=== PATIENT | female | born 1990 | race African-American/Black ===

== ENCOUNTER 2019-03-10 11:27 | Emergency (ER) | payer SELFPAY ==
[2019-03-10 11:33] VITALS: BP 120/84; PULSE 89; TEMP 98.6; BMI 32.1
[2019-03-10] MEDS ORDERED: ONDANSETRON 4 MG/2 ML VIAL IVPUSH ONE (12:05)
[2019-03-10] MEDS ORDERED: KETOROLAC TROMETHAMINE 30 MG/1 ML VIAL IVPUSH STA (12:05)
[2019-03-10] MEDS ORDERED: SODIUM CHLORIDE 1,000 ML IV STA ×2 (12:05→13:34)
--- NOTE | 2019-03-10 12:26 | PDOC ---
History of Present Illness - General Chief Complaint: Pain, Acute Stated Complaint: BACK PAIN Time Seen by Provider: 03/10/19 11:50 History Source: Patient Exam Limitations: No Limitations - History of Present Illness Travel History: No Initial Comments: 03/10/19 12:08 28-year-old female presents to ED with complaints of hematuria since Sunday now with bilateral back pain rating to her lower abdomen. Patient states pain is worsened to the left side. Patient denies history of renal colic ovarian cyst, irregular menses, or UTI recently. Patient denies abdominal distention or change in bowel pattern. Patient also denies fever, chills but states mild nausea this a.m. Quality: reports: mild Abdominal Pain Onset Location: reports: flank Pain Radiation: reports: back Activities at Onset: reports: none Aggravating Factors: improves with: None Alleviating Factors: improves with: None Past History - Travel Traveled outside of the country in the last 30 days: No Close contact w/someone who was outside of country & ill: No - Past Medical History Home Medications: Ambulatory Orders Oxycodone HCl/Acetaminophen [Percocet 5-325 mg Tablet] 1 - 2 tab PO TID PRN #12 tab MDD 4 03/10/19 Sulfamethoxazole/Trimethoprim [Bactrim Ds -] 1 tab PO BID #20 tablet 03/10/19 - Psycho Social/Smoking Cessation Hx Smoking History: Current every day smoker Number of Cigarettes Smoked Daily: 0.5 Information on smoking cessation initiated: No Hx Alcohol Use: Yes Drug/Substance Use Hx: No Patient Lives Alone: No Lives with/in: spouse/SO Review of Systems - Review of Systems Able to Perform ROS?: Yes Constitutional: No: Symptoms Reported HEENTM: No: Symptoms Reported Respiratory: No: Symptoms reported Cardiac (ROS): No: Symptoms Reported ABD/GI: Yes: Nausea, Abdominal cramping : Yes: Flank Pain, Hematuria Integumentary: No: Symptoms Reported Neurological: No: Symptoms reported Endocrine: No: Symptoms Reported *Physical Exam - Vital Signs Last Vital Signs Temp Pulse Resp BP Pulse Ox 98.6 F 89 19 120/84 99 03/10/19 11:29 03/10/19 11:29 03/10/19 11:29 03/10/19 11:29 03/10/19 11:29 - Physical Exam General Appearance: Yes: Nourished, Appropriately Dressed. No: Apparent Distress HEENT: negative: Pale Conjunctivae Neck: positive: Supple Respiratory/Chest: positive: Lungs Clear, Normal Breath Sounds. negative: Respiratory Distress, Accessory Muscle Use Cardiovascular: positive: Regular Rhythm, Regular Rate. negative: Murmur Gastrointestinal/Abdominal: positive: Soft, Tenderness (ted flank tenderness and rt lower and suprparubic tenderness) Musculoskeletal: positive: CVA Tenderness (L) Integumentary: positive: Normal Color, Warm, Moist Neurologic: positive: Motor Strength 5/5 (ambulatory) ED Treatment Course - LABORATORY CBC & Chemistry Diagram: 03/10/19 12:20 03/10/19 12:20 Medical Decision Making - Medical Decision Making 03/10/19 12:36 Chief complaint: Hematuria and flank pain since Sunday now with nausea and abdominal pain no medical history no family history except for ovarian cyst. Exam: Left CVA and right/left flank pain with tenderness to the right suprapubic and right lower quadrant Plan: Labs, urine, IV Toradol, Zofran and fluids 03/10/19 13:04 Laboratory Tests 03/10/19 03/10/19 03/10/19 12:20 12:20 12:20 WBC 6.7 Hgb 13.3 Hct 40.4 Absolute Neuts (auto) 3.5 Sodium 140 Potassium 4.1 Chloride 105 Carbon Dioxide 27 Anion Gap 8 BUN 12.6 Creatinine 0.9 Est GFR (CKD-EPI)NonAf 86.41 Random Glucose 85 Calcium 9.3 Total Bilirubin 0.4 AST 9 L ALT 27 Alkaline Phosphatase 101 Total Protein 7.6 Albumin 3.6 Lipase 42 L Urine Protein 1+ H Urine Ketones Negative Urine Blood 1+ H Ur Leukocyte Esterase 3+ H Urine WBC (Auto) 337 Urine RBC (Auto) 11 Urine Bacteria (Auto) 277.9 Patient received ceftriaxone secondary to urinary findings and physical exam. After receiving the medication patient did complain of mild dizziness. Patient ordered for second liter of normal saline along with kidney ultrasound 03/10/19 15:17 Ultrasound shows no signs of hydronephrosis lesions, or other acute pathology. patient will be discharged home with Percocet and Bactrim for urinary tract infection/pyelonephritis. Discharge - Discharge Information Problems reviewed: Yes Clinical Impression/Diagnosis: Pyelonephritis Condition: Improved Disposition: HOME - Additional Discharge Information Prescriptions: Oxycodone HCl/Acetaminophen [Percocet 5-325 mg Tablet] 1 - 2 tab PO TID PRN #12 tab MDD 4 PRN Reason: Pain Sulfamethoxazole/Trimethoprim [Bactrim Ds -] 1 tab PO BID #20 tablet - Follow up/Referral - Patient Discharge Instructions Patient Printed Discharge Instructions: DI for Kidney Infection Additional Instructions: Please drink at least 2 L of water on a daily basis. Clean from front to back. Please start your Bactrim tonight. And take Percocet as needed for pain but do not operate any heavy machinery including of vehicle. - Post Discharge Activity Work/Back to School Note: Back to Work
[2019-03-10 12:29] LABS: BASO % 0.9 % (0-2.0); EOS % 1.4 % (0-4.5); HEMATOCRIT 40.4 % (32.4-45.2); HEMOGLOBIN 13.3 GM/dL (10.7-15.3); LYMPH % 38.5 % (8-40); MCH 27.5 pg (25.7-33.7); MCHC 33.1 g/dl (32.0-36.0); MEAN CELL VOLUME 83.2 fl (80-96); MEAN PLT VOLUME 8.9 fl (7.5-11.1); MONO % 7.2 % (3.8-10.2); PLATELET COUNT 353 K/MM3 (134-434); RBC 4.85 M/mm3 (3.60-5.2); RDW 13.1 % (11.6-15.6); WHITE BLOOD COUNT 6.7 K/mm3 (4.0-10.0)
[2019-03-10 12:30] LABS: EPI CELLS 3.4 /HPF (0-5/HPF); HYALINE CASTS 3 /lpf (0-8); URINE APPEARANCE CLOUDY; URINE BACTERIA 277.9 /hpf (NEGATIVE); URINE BILIRUBIN NEGATIVE (NEGATIVE); URINE COLOR YELLOW; URINE GLUCOSE (UA) NEGATIVE (NEGATIVE); URINE KETONE NEGATIVE (NEGATIVE); URINE LEUK ESTERASE 3+ (NEGATIVE); URINE NITRITE NEGATIVE (NEGATIVE); URINE PROTEIN 1+ (NEGATIVE); URINE RBC 11 /hpf (0-4); URINE WBC 337 /hpf (0-5)
[2019-03-10] MEDS ORDERED: CEFTRIAXONE 1 GM in DEXTROSE 5%-WATER - 50 ML IVPB ONE (12:38)
[2019-03-10] MEDS ORDERED: CEFTRIAXONE 1 GM/50 ML BAG ONE (12:48)
[2019-03-10 13:01] LABS: ALBUMIN 3.6 g/dl (3.4-5.0); BILIRUBIN,TOTAL 0.4 mg/dL (0.2-1); BLOOD UREA NITROGEN 12.6 mg/dL (7-18); CALCIUM 9.3 mg/dL (8.5-10.1); CREATININE 0.9 mg/dL (0.55-1.3); POTASSIUM 4.1 mmol/L (3.5-5.1); TOT PROT 7.6 g/dl (6.4-8.2)
== END 2019-03-10 15:24 | disposition home or self-care (01) ==
LOC: JER 11:27
PROC: 3E0337Z Introduction of Electrolytic and Water Balance Substance into Peripheral Vein, Percutaneous Approach (ICD-10-PCS; principal; 2019-03-10)
PROC: 3E03329 Introduction of Other Anti-infective into Peripheral Vein, Percutaneous Approach (ICD-10-PCS; 2019-03-10)
PROC: 3E0333Z Introduction of Anti-inflammatory into Peripheral Vein, Percutaneous Approach (ICD-10-PCS; 2019-03-10)
PROC: 3E033GC Introduction of Other Therapeutic Substance into Peripheral Vein, Percutaneous Approach (ICD-10-PCS; 2019-03-10)
DX: N12 Tubulo-interstitial nephritis, not specified as acute or chronic (principal); F17.210 Nicotine dependence, cigarettes, uncomplicated
CPT/HCPCS: 36415; 76775-TC; 80053; 81003; 83690; 84703; 85025; 87077; 87086; 99282-25; J7030

== ENCOUNTER 2019-05-22 10:05 | Emergency (ER) | payer BC ==
[2019-05-22 10:16] VITALS: BMI 28.8
--- NOTE | 2019-05-22 10:23 | PDOC ---
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 She reports that her symptoms of somewhat improved but have been persistent. She denies shortness of breath, nausea, diaphoresis, lightheadedness. She smokes a cigar once a week, does not use OCP, denies recent travel or surgery. No prior dvt or pe. ROS GENERAL/CONSTITUTIONAL: No fever or chills. No weakness. HEAD, EYES, EARS, NOSE AND THROAT: No change in vision. No ear pain or discharge. No sore throat. CARDIOVASCULAR: No chest pain or shortness of breath RESPIRATORY: No cough, wheezing, or hemoptysis. GASTROINTESTINAL: No nausea, vomiting, diarrhea or constipation. GENITOURINARY: No dysuria, frequency, or change in urination. MUSCULOSKELETAL: No joint or muscle swelling or pain. No neck or back pain. SKIN: No rash NEUROLOGIC: No headache, vertigo, loss of consciousness, or change in strength/ sensation. ENDOCRINE: No increased thirst. No abnormal weight change HEMATOLOGIC/LYMPHATIC: No anemia, easy bleeding, or history of blood clots. ALLERGIC/IMMUNOLOGIC: No hives or skin allergy. PE GENERAL: Awake, alert, and fully oriented, in no acute distress HEAD: No signs of trauma, normocephalic, atraumatic EYES: PERRLA, EOMI, sclera anicteric, conjunctiva clear ENT: oropharynx clear without exudates. Moist mucosa NECK: Normal ROM, supple LUNGS: No distress, speaks full sentences, clear to auscultation bilaterally HEART: Regular rate and rhythm, normal S1 and S2, no murmurs, rubs or gallops, peripheral pulses normal and equal bilaterally. ABDOMEN: Soft, nontender, normoactive bowel sounds. No guarding, no rebound. No masses EXTREMITIES : Normal inspection, Normal range of motion, no edema. No clubbing or cyanosis. NEUROLOGICAL: Cranial nerves II through XII grossly intact. Normal speech, normal gait, no focal sensorimotor deficits SKIN: Warm, Dry, normal turgor, no rashes or lesions noted MDM DDX including but not limited to: r/o acs vs pe msk vs pleuritis ED Course: labs wnl dimer and trop negative cxr with no acute pathology pending formal echo Shena Sims, PGY2 Emergency Medicine 05/22/19 14:03 05/22/19 14:04 Past History - Past Medical History Allergies/Adverse Reactions: Allergies Allergy/AdvReac Type Severity Reaction Status Date / Time No Known Allergies Allergy Verified 05/22/19 10:13 Home Medications: Ambulatory Orders NK [No Known Home Medication] 05/22/19 COPD: No - Immunization History Immunization Up to Date: Yes - Psycho Social/Smoking Cessation Hx Smoking History: Never smoked Number of Cigarettes Smoked Daily: 0.5 Information on smoking cessation initiated: No Hx Alcohol Use: No Drug/Substance Use Hx: No *Physical Exam - Vital Signs Last Vital Signs Temp Pulse Resp BP Pulse Ox 97.9 F 68 17 123/68 100 05/22/19 10:13 05/22/19 10:13 05/22/19 10:13 05/22/19 10:13 05/22/19 10:13 ED Treatment Course - LABORATORY CBC & Chemistry Diagram: 05/22/19 10:45 05/22/19 10:45 Discharge - Discharge Information Problems reviewed: Yes Clinical Impression/Diagnosis: Atypical chest pain Condition: Stable Disposition: HOME - Admission No - Follow up/Referral - Patient Discharge Instructions Patient Printed Discharge Instructions: DI for Atypical Chest Pain Additional Instructions: You were seen in the ED for complaints of chest pain Your labwork and chest x-ray did not show any significant findings You should follow up with your Family Doctor within 1 week. Return to the ED if you experience worsening chest pain, shortness of breath, nausea, lightheadedness or sweating or any other concerning symptoms. - Post Discharge Activity Work/Back to School Note: Back to Work
[2019-05-22 10:59] LABS: BASO % 1.2 % (0-2.0); EOS % 2.5 % (0-4.5); HEMATOCRIT 40.1 % (32.4-45.2); HEMOGLOBIN 13.1 GM/dL (10.7-15.3); LYMPH % 40.8 % (8-40); MCH 27.5 pg (25.7-33.7); MCHC 32.7 g/dl (32.0-36.0); MEAN CELL VOLUME 83.9 fl (80-96); MEAN PLT VOLUME 9.2 fl (7.5-11.1); MONO % 5.8 % (3.8-10.2); NEUT % 49.7 % (42.8-82.8); PLATELET COUNT 318 K/MM3 (134-434); RBC 4.78 M/mm3 (3.60-5.2); RDW 13.7 % (11.6-15.6); WHITE BLOOD COUNT 6.2 K/mm3 (4.0-10.0)
[2019-05-22 11:17] LABS: ALBUMIN 3.8 g/dl (3.4-5.0); ALK PHOS 80 U/L (45-117); ANION GAP 7 MMOL/L (8-16); BILIRUBIN,TOTAL 0.2 mg/dL (0.2-1); BLOOD UREA NITROGEN 15.5 mg/dL (7-18); CALCIUM 8.9 mg/dL (8.5-10.1); CHLORIDE 106 mmol/L (98-107); CO2 25 mmol/L (21-32); CREATININE 0.8 mg/dL (0.55-1.3); GLUCOSE,RANDOM 151 mg/dL (74-106); N-TERMINAL BNP 23.3 pg/ml (5-125); POTASSIUM 3.9 mmol/L (3.5-5.1); SGOT/AST 14 U/L (15-37); SGPT/ALT 30 U/L (13-61); SODIUM 138 mmol/L (136-145); TOT PROT 7.2 g/dl (6.4-8.2)
--- NOTE | 2019-05-22 11:49 | EKG ---
Test Reason : Blood Pressure : / mmHG Vent. Rate : 066 BPM Atrial Rate : 066 BPM P-R Int : 160 ms QRS Dur : 084 ms QT Int : 378 ms P-R-T Axes : 040 061 020 degrees QTc Int : 396 ms NORMAL SINUS RHYTHM WITH SINUS ARRHYTHMIA NORMAL ECG NO PREVIOUS ECGS AVAILABLE Confirmed by ABEL RICO MD ([id number]) on 05/22/2019 11:49:30 AM Referred By: Confirmed By:ABEL RICO MD
--- NOTE | 2019-05-22 12:26 | PDOC ---
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 also left sided neck and arm pain. started today, when awoke from sleep. did have cough and nasal congestion one week ago. reminds here of her prior viral pericarditis several yuears ago.l not pleuritic no sob. no f/c no leg swelling. no h/o pe or dvt. no endoscopy rn. does have h/ o uterine CA s/p rescetion many years ago. last fu was 2 - 3 yrs ago. as only recently insured. did have fu with cardiology after her admission for casper/ myocarditis 7 yrs ago and was evaluated with stress and echo which was reportedly normal. - Physicial Exam PE: 05/22/19 12:29 awake alert lungs clear bilat heart rrr no mrg abd soft nt nd ext wwp skin warm and dry. ext wwp. no edema. no calf tenderness. 2 + dp/ pt pulses bilat - Medical Decision Making 05/22/19 12:30 28 yo h/o treated uterine CA, prior casper/ myocarditis here with cp. differemtil includes recurrent pericarditis , pna or other infection, pe, acs lessl likley due to age plan cbc cmp trop ekg d dimer. echo.
[2019-05-22 15:41] VITALS: BP 110/79; PULSE 81; TEMP 98.2
== END 2019-05-22 15:30 | disposition home or self-care (01) ==
LOC: JER 10:05
DX: R07.89 Other chest pain (principal); Z86.79 Personal history of other diseases of the circulatory system; Z85.42 Personal history of malignant neoplasm of other parts of uterus
CPT/HCPCS: 36415; 71045-TC-FY; 80053; 83880; 84484; 84702; 85025; 85379; 93005; 93010; 93308; 99284-25